=== PATIENT | female | born 1965 | race Caucasian/White ===

== ENCOUNTER 2020-08-06 12:21 | Inpatient (IN) | payer OTHER ==
[~2020-08-06] VITALS: Ht 170.2 cm; Wt 85.0 kg
[~2020-08-06 12:21] MED LIST: ALPR.5 PO; Antivert25 MG PO; CEPH500 PO; CITA20 PO; CYCL10 PO; HYDACE5 PO; IBUP800 PO; Naprosyn500 MG PO; Norco 5-325 Ta1 EACH PO; OXYACE5T PO; SULTRIDS PO; Ultram50 MG PO
[2020-08-06 12:44] LABS: BASOPHILS ABSOLUTE AUTO 0.02 K/mm3 (0.00-0.23); BASOPHILS PERCENT AUTO 0 % (0-2); EOSINOPHILS ABSOLUTE AUTO 0.01 K/mm3 (0.00-0.68); EOSINOPHILS PERCENT AUTO 0 % (0-6); Hematocrit 51.9 % (33.0-51.0); Hemoglobin 17.2 g/dL (11.5-16.0); IMMATURE GRAN ABSOLUTE AUTO 0.07 K/mm3 (0.00-0.10); IMMATURE GRAN PERCENT AUTO 1 % (0-1); LYMPHOCYTES ABSOLUTE AUTO 1.28 K/mm3 (0.84-5.20); LYMPHOCYTES PERCENT AUTO 9 % (21-46); MONOCYTES ABSOLUTE AUTO 1.08 K/mm3 (0.16-1.47); MONOCYTES PERCENT AUTO 8 % (4-13); Mean Corpuscular HGB 30.2 pg (26.0-34.0); Mean Corpuscular HGB Conc 33.1 g/dL (31.5-36.5); Mean Corpuscular Volume 91 fL (80-100); NEUTROPHILS ABSOLUTE AUTO 11.23 K/mm3 (1.96-9.15); NEUTROPHILS PERCENT AUTO 82 % (41-73); Platelet Count 184 K/mm3 (150-400); RDW Coefficient Variation 14.6 % (11.7-14.2); RDW Standard Deviation 48.1 fL (35.1-46.3); White Blood Cell Count 13.69 K/mm3 (4.00-11.30)
[2020-08-06 13:08] LABS: Base Excess Venous -0.5 mmol/L; Bicarbonate Venous 22.6 mmol/L (24.0-30.0); PCO2 Venous 44.4 mmHg (38-42); pH Blood Venous 7.36 (7.34-7.37)
[2020-08-06 13:09] LABS: Alanine Aminotransfer (ALT/SGP 34 U/L (12-78); Albumin, Blood 3.3 g/dL (3.4-5.0); Albumin/Globulin Ratio 0.6 (0.8-1.8); Alk Phos 121 U/L (50-136); Anion Gap 11 mmol/L (6-16); Aspartate Aminotrans (AST/SGOT 74 U/L (12-37); Bilirubin, Total 2.5 mg/dL (0.1-1.0); Blood Urea Nitrogen 15 mg/dL (8-24); Bun/Creatinine Ratio 18.3 (12.0-20.0); CO2, Blood 24 mmol/L (21-32); CPK Creatine Kinase 511 U/L (26-193); Calcium, Blood 9.1 mg/dL (8.5-10.1); Chloride, Blood 104 mmol/L (98-108); Creatine Kinase MB 26.7 ng/mL (0.0-3.6); Creatine Kinase MB Index 5.2 (0.0-4.0); Creatinine, Blood 0.82 mg/dL (0.40-1.00); Globulin, Blood 5.1 g/dL (2.2-4.0); Glomerular Filtration Rate >60 (60-); Glucose, Blood 125 mg/dL (70-99); Potassium, Blood 3.8 mmol/L (3.5-5.5); Sodium, Blood 139 mmol/L (136-145); Total Protein, Blood 8.4 g/dL (6.4-8.2)
[2020-08-06 13:19] LABS: Acetaminophen, Random <2.0 ug/mL (10.0-30.0); Salicylate <1.7 mg/dL (2.8-20.0)
[2020-08-06 13:29] LABS: Source, Urine Catheter
[2020-08-06 13:35] LABS: Appearance, Urine Clear (Clear); Bilirubin, Urine Neg (Neg); Blood, Urine 5+ (Neg); Color, Urine Yellow (P-Yellow); Glucose Qualitative, Urine Neg (Neg); Ketones, Urine 1+ (Neg); Leukocyte Esterase, Urine Neg (Neg); Nitrite, Urine Neg (Neg); Protein, Urine 4+ (Neg); Specific Gravity, Urine 1.015 (1.003-1.022); Urobilinogen, Urine NORM (Normal)
[2020-08-06 13:35] LABS: Calcium, Ionized (POC) 1.04 mmol/L (1.10-1.46); Chloride (POC) 102 mmol/L (98-108); Creatinine (POC) 0.8 mg/dL (0.6-1.0); Glucose (ISTAT POC) 136 mg/dL (70-99); Potassium (POC) 3.6 mmol/L (3.5-5.5); Sodium (POC) 139 mmol/L (135-148); Total CO2 (POC) 24 mmol/L (21-32)
[2020-08-06 13:46] LABS: Bacteria Few /hpf; Squamous Epithelial Cells Few /hpf (Few); White Blood Cells, Urine 0-2 /hpf (0-5)
[2020-08-06 13:52] LABS: U Cannabinoids Screen DETECTED
[2020-08-06 13:53] LABS: U Amphetamine Screen DETECTED; U Barbituate Screen Not Detected; U Benzodiazapine Screen Not Detected; U Buprenorphine Screen Not Detected; U Cocaine Screen Not Detected; U Methadone Screen Not Detected; U Methamphetamine Screen DETECTED; U Opiates Screen Not Detected; U Oxycodone Screen Not Detected; U Phencyclidine Screen Not Detected; U Propoxyphene Screen Not Detected
[2020-08-06 13:56] LABS: Influenza A, PCR NEGATIVE (NEGATIVE); Influenza B, PCR NEGATIVE (NEGATIVE); Resp Syncytial Virus, PCR NEGATIVE (NEGATIVE); SARS-Cov-2 (COVID-19) PCR, MMC NEGATIVE (NEGATIVE)
--- NOTE | 2020-08-06 15:00 | NUR ---
echocardiogram complete
--- NOTE | 2020-08-06 18:45 | NUR ---
SUMMARY Assumed care of pt upon arrival to ICU 8 from Emergency Department. Pt arrived with propofol at 20 mcg/kg/min. Unresponsive, which has been pt's LOC since presentation to ED. Sedation being given because pt received paralytics during RSI. Pt connected to ventilator at AC 14/400/5/40%. SpO2 90% or greater. Thick green sputum suctioned from ETT, sample sent. Lungs coarse t/o. Pt breathing over ventilator, RR 16-18 at rest and 22-30 when being stimulated. Pupils are pinpoint, with some additional constriction in response to light. With painful stimulus, pt does not move extremities or grimace. No gag noted. Cough present. No movement noted to BUE but pt remains in restraints as pt received RSI medications and may be at risk for self-extubation. Will continue to reassess continued need for restraints. Pt has gross movement to legs and was moving feet as if she was stepping on a pedal when this RN was assessing pedal and post tibial pulses with doppler. These pulses are faint per doppler. Radial pulses 1+ on palpation. Distal extremeties are purple and mottled. ER nurse, Petr, noted that this appearance was an improvement in appearance from when pt arrived to ER- at that time they were blue/dunn. Currently capillary refill is greater than 3 seconds. SR per monitor. Pt profoundly hypertensive and hypertension was not controlled with labetalol pushes. Dr Sharma ordered labetalol drip and instructed this RN to start drip at 2 mg/min. This RN stayed in room with patient for entire time labetalol drip was running, monitoring blood pressure every 5 minutes. Drip titration on flow sheet. Drip quickly titrated down to 0.5 mg/min and then turned off due to BP. Pt's BP continued to drop despite labetalol turned off and disconnected. 500 mL bolus of NS given per Dr Sharma. Pt's BP continued to drop for first 15-20 minutes of fluid bolus before BP started to improve. Unclear if BP improvement was from fluids or labetalol half-life. Dr Sharma notified of BP after bolus. Provider ordered levophed drip to achieve goal BP of 150-160 systolic. PICC line placed by hemodialysis charge nurseAlondra. Pt has large amount of red oral secretions suctioned. Per ER documentation, pt required several intubation attempts. Pt also having some brown drainage from OG tube. Liriano catheter draining yellow urine. Pt's son, Kemal, visited with patient for about 2 hours after arrival to unit. States his mother does not have any health history, does not take any prescribed medications, and does not routinely see a doctor. He states his mother is essentially homeless and often sleeps in her car. States she drinks daily. He does not quantify a specific amount but states "She always has a pint with her". He states she smokes tobacco, estimating half a pack per day. States she did not report any recreational drug use other than marijuana, "Marijuana helps her", however he has been suspicious of elicit drug use due to her behavior. 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 Report given to oncoming RN to assume care, Alexander.
--- NOTE | 2020-08-06 19:13 | NUR ---
ASSUMED PT CARE AT 1900 FROM [facility] PT INTUBATED AT THIS TIME. NOT ON ANY SEDATION. VENT AC 14, VT 400, PEEP 5, FIO2 30%; PT'S RESPIRATIONS ARE 22 AT THIS TIME. ALL FLUIDS AND IV MEDS ON STANDBY AT THIS TIME. PICC LINE BEING PLACED TO LEFT UPPER ARM AT TIME OF BEDSIDE REPORT; WAITING CONFIRMATION FROM CXR. ORDERS TO START LEVOPHED PER DR. BARRIGA TO KEEP SBP 150'S PER REPORT. SBP'S ARE 112 RIGHT NOW. NSR WITH HR 90'S. FEBRILE WITH 101.1 TEMP. DAS CATHETER PATENT AND DRAINING CLEAR YELLOW URINE. PT IS UNRESPONSIVE AT THIS TIME; GROSS MOTOR MOVEMENT NOTED TO EXTREMITIES. PERIHPERAL EXTREMITIES ARE CYANOTIC; HOWEVER, BILATERAL PEDIS PULSES ARE PALPABLE; CAP REFILL >3SEC.
--- NOTE | 2020-08-06 20:47 | NUR ---
UPDATE TO DR. BARRIGA CALL MADE D/T TEMP SLOWLY ELEVATING SINCE ASSUMPTION OF CARE; 100.3 TO 101.7. NEW ORDERS FOR BLOOD CULTURES X2, TYLENOL 650MG Q4 PRN TEMP >100.4. START UNASYN 3GM Q6 IV. UPDATED REGARDING NYSTAGMUS AND POSITIVE BABINSKI REFLEX; THEREFORE, REMOVED PT OUT OF RESTRAINTS. NEW ORDERS FOR LIVER ULTRASOUND FOR IN THE AM D/T CT SHOWING AIR IN LIVER, POSSIBLE PORTAL VENOUS GAS. FURTHER ORDERS TO KEEP LEVOPHED ON T/O THE NIGHT IN ORDER TO KEEP SYSTOLIC BP BETWEEN 140-160; WILL RE-EVALUATE IN THE MORNING.
--- NOTE | 2020-08-06 21:52 | NUR ---
UPDATE GIVEN TO DAUGHTER SPOKE WITH MADDI, WHO IS LISTED ON RELEASE OF INFORMATION. STATED SHE WOULD PREFER TO BE CALLED FIRST REGARDING ANY CHANGES BOTH HER BROTHER AND YOUNGER SISTER HAVE SURGICAL ONCOLOGIST JOBS. INFORMED HER THAT OLDER BROTHER WOULD NEED TO GIVE THAT CONSENT SINCE HE IS NEXT OF KIN. DAUGHTER STATES SHE HASN'T BEEN CLOSE TO HER MOTHER HER OTHER SIBLINGS; HOWEVER, THEY WERE NOT ESTRANGED. PT'S CHILDREN ARE THE ONLY ONES LISTED ON THE RELEASE OF INFORMATION. INFORMED MADDI THAT PT'S "ROOMMATE" CALLED ASKING "WHO HER DOCTORS WERE, WHO KNOCKED HER OUT, AND IF DR. BATISTA WAS ON HER CASE." INFORMED THIS CALLER THAT SHE WAS NOT ON THE RELEASE OF INFORMATION AND SHE WOULD NEED TO CONTACT PT'S KIDS TO BE PLACED ON THE LIST; CALLER HUNG UP QUICKLY. MADDI STATED NOBODY WILL BE PLACED ON THE RELEASE OF INFORMATION; JUST WHO IS ON THERE NOW. OBTAINED MADDI'S PHONE NUMBER AND PLACED ON CHART. NO FURTHER QUESTIONS.
--- NOTE | 2020-08-07 01:03 | NUR ---
PT'S FRIEND CALLED AGAIN EVELINE MCDOWELL CALLED TO "LET US KNOW" THAT SHE "CHOKED" ON STEAK THE OTHER NIGHT AND SHE KNOWS IT WAS "STUCK IN HER WINDPIPE". SHE ALSO WANTED TO LET US KNOW THAT SHE HAS A CYST ON HER OVARY. SHE ASKED HOW LONG SHE WAS GOING TO BE ON THE VENTILATOR. INFORMED HER WE COULD NOT GIVE HER ANY INFORMATION AT THIS TIME.
[2020-08-07 04:31] LABS: BASOPHILS ABSOLUTE AUTO 0.01 K/mm3 (0.00-0.23); BASOPHILS PERCENT AUTO 0 % (0-2); EOSINOPHILS PERCENT AUTO 0 % (0-6); Hematocrit 40.1 % (33.0-51.0); Hemoglobin 13.4 g/dL (11.5-16.0); IMMATURE GRAN ABSOLUTE AUTO 0.04 K/mm3 (0.00-0.10); IMMATURE GRAN PERCENT AUTO 0 % (0-1); LYMPHOCYTES PERCENT AUTO 13 % (21-46); MONOCYTES ABSOLUTE AUTO 1.14 K/mm3 (0.16-1.47); MONOCYTES PERCENT AUTO 12 % (4-13); Mean Corpuscular HGB Conc 33.4 g/dL (31.5-36.5); Mean Corpuscular Volume 90 fL (80-100); Mean Platelet Volume 11.2 fL (9.1-12.4); NEUTROPHILS ABSOLUTE AUTO 7.23 K/mm3 (1.96-9.15); NEUTROPHILS PERCENT AUTO 75 % (41-73); NRBC ABSOLUTE 0.03 K/mm3 (0.00-0.02); NRBC Auto 0.3 /100 WBC (0.0-0.2); Platelet Count 122 K/mm3 (150-400); RDW Coefficient Variation 14.7 % (11.7-14.2); RDW Standard Deviation 48.2 fL (35.1-46.3); Red Blood Cell Count 4.47 M/mm3 (3.80-5.20); White Blood Cell Count 9.62 K/mm3 (4.00-11.30)
--- NOTE | 2020-08-07 05:00 | NUR ---
END OF SHIFT SUMMARY PT REMAINS INTUBATED, BUT OFF SEDATION. VENT SETTINGS AC 14, VT 400, PEEP 5, FIO2 30%. PT HAS MAINLY BEEN BREATHING OVER THE VENT IN THE 20'S. COWORKER MEDICATED WITH 2MG OF ATIVAN D/T RESP 30-40'S AT ONE POINT. PT REMAINS UNRESPONSIVE. PUPILS PINPOINT AT THIS TIME. DIFFICULT TO ASSESS IF REACTIVE TO LIGHT. EARLIER IN SHIFT PT'S GAZE WAS NOTED TO BE NYSTAGMUS, WELL A POSITIVE BABINSKI REFLEX TO BILATERAL FEET. UPON REASSESSMENT THIS MORNING IT WAS NOTED THAT DURING STIMULATING COUGH PT HAD AN INWARD ROTATION OF ALL EXTREMITIES; MORE PROMINENT IN LEFT UPPER EXTREMITY. DAS CATHETER REMAINS PATENT AND DRAINING DARK [place] COLORED URINE TO GRAVITY. RESTRAINTS REMAIN OFF D/T NO PURPOSEFUL MOVEMENT. OG CLAMPED MOST OF THE SHIFT D/T PT TYLENOL ADMINISTERED FOR ELEVATED TMAX OF 102.7; WHICH IS NOW 100.4. OUTPUT IN OG REMAINS DARK BROWN WITH NOTED STREAKED BLOOD CLOTS; 50CC TOTAL; OG IS NOW HOOKED BACK TO LOW INTERMITTENT SUCTION. WILL CONTINUE TO MONITOR UNTIL REPORT IS HANDED OFF TO ONCOMING RN.
[2020-08-07 05:04] LABS: CPK Creatine Kinase 495 U/L (26-193); Magnesium, Blood 1.2 mg/dL (1.6-2.4)
[2020-08-07 05:52] LABS: Alanine Aminotransfer (ALT/SGP 21 U/L (12-78); Albumin, Blood 1.8 g/dL (3.4-5.0); Alk Phos 62 U/L (50-136); Anion Gap 10 mmol/L (6-16); Aspartate Aminotrans (AST/SGOT 62 U/L (12-37); Bilirubin, Indirect 1.2 mg/dL (0.1-0.7); Bilirubin, Total 2.2 mg/dL (0.1-1.0); Blood Urea Nitrogen 14 mg/dL (8-24); Bun/Creatinine Ratio 21.6 (12.0-20.0); CO2, Blood 18 mmol/L (21-32); Chloride, Blood 116 mmol/L (98-108); Creatinine, Blood 0.65 mg/dL (0.40-1.00); Glomerular Filtration Rate >60 (60-); Glucose, Blood 181 mg/dL (70-99); Potassium, Blood 2.7 mmol/L (3.5-5.5); Sodium, Blood 144 mmol/L (136-145)
[2020-08-07 06:21] LABS: Albumin/Globulin Ratio 0.6 (0.8-1.8); Globulin, Blood 2.8 g/dL (2.2-4.0)
[2020-08-07 06:22] LABS: Calcium, Blood 5.7 mg/dL (8.5-10.1); Total Protein, Blood 4.6 g/dL (6.4-8.2)
--- NOTE | 2020-08-07 06:28 | NUR ---
UPDATE TO DR. BARRIGA CALLED REGARDING LAB RESULTS FOR LACTIC, POTASSIUM, CALCIUM, AND MAGNESIUM. NEW ORDERS FOR REPLACEMENT OF ELECTROLYTES WITH REPEAT LAB DRAWS AT 1400. UPDATED REGARDING PT'S POSTURING STATUS AND LEVOPHED NEEDS. NO FURTHER ORDERS AT THIS TIME.
--- NOTE | 2020-08-07 07:15 | NUR ---
BEGINNING OF SHIFT Assumed care of pt at 0700. Bedside report received from Alexander [place]. Pt not sedated. Pt not in restraints. Pt responsive to painful stimulus. Decerebrate posturing with nail bed pressure. No gag. Cough present. Babinski reflex present. Disconjugate eye movement noted. Pupils equal, round, and reactive to light. Pt ventilated through 7.5 cm ETT, 23 cm at the teeth. Ventilator settings AC 14/400/5/30%. SpO2 90% or greater. Small amount of thick green sputum suctioned from ETT. OG tube to LIS with small amount of brown drainage. Liriano catheter draining dark yellow urine. Levophed on SB.
--- NOTE | 2020-08-07 08:21 | NUR ---
URINE CATHETER REINSERTION On repositioning, pt began peeing around welch catheter. This RN wiped the tubing to perform catheter care and catheter came out. Balloon was not inflated when it fell out. New temp welch inserted. Pt tolerated well.
[2020-08-07 08:31] LABS: Source, Urine Catheter
[2020-08-07 08:41] LABS: Appearance, Urine Clear (Clear); Blood, Urine 2+ (Neg); Color, Urine Amber (P-Yellow); Glucose Qualitative, Urine Neg (Neg); Ketones, Urine 1+ (Neg); Leukocyte Esterase, Urine 1+ (Neg); Nitrite, Urine Pos (Neg); Protein, Urine 3+ (Neg); Specific Gravity, Urine 1.025 (1.003-1.022); Urobilinogen, Urine 1+ (Normal)
[2020-08-07 09:00] LABS: Bilirubin, Urine 1+ (Neg)
[2020-08-07 09:01] LABS: Red Blood Cells, Urine 0-2 /hpf (0-2); Squamous Epithelial Cells Rare /hpf (Few)
[2020-08-07 09:02] LABS: Amorphous Light (0-Heavy); Bacteria Mod /hpf
--- NOTE | 2020-08-07 09:13 | NUR ---
DR FLORES IN TO SEE PATIENT Provider in to see patient. Discussed large amount of bloody secretions from oropharynx. In discussion with respiratory therapists that were with pt yesterday, intubation was not traumatic. Plan to hold aspirin suppository and lovenox injection at this time. Potential to start tube feeds today. Plan to obtain EEG. Continue to hold sedation.
--- NOTE | 2020-08-07 11:26 | NUR ---
INITIAL PAL CARE VISIT - YARIEL son, Kemal [phone] NEW REFERAL RECEIVED FROM ICU DRILL GRINDER - Case conferenced with bedside and discharge specialist as well as IDT during rounding prior to visit. Pt is currently ventilated and unresponsive with no sedation at this time. History of event & plan of care received and EMR fully reviewed. I assisted with repositioning in bed with no response noted from pt. She will randomly flex feet and ankles but no purposeful movement noted. Pt scheduled for EEG today. When more information known re: pt's condition and prognosis we will assist with family communication and advanced care planning. I did not note any nonverbal indicators of pain, restlessness or distress while resting or with us repositioning pt.
--- NOTE | 2020-08-07 11:44 | NUR ---
LEVOPHED RESARTED Dr Pulido notified that SBP is 115-125. Provider states to restart levophed to achieve SBP 150-160. Levophed restarted at 2 mcg/min.
[2020-08-07 14:42] LABS: Magnesium, Blood 2.8 mg/dL (1.6-2.4)
[2020-08-07 14:43] LABS: Anion Gap 8 mmol/L (6-16); Blood Urea Nitrogen 20 mg/dL (8-24); CO2, Blood 22 mmol/L (21-32); Chloride, Blood 109 mmol/L (98-108); Creatinine, Blood 0.87 mg/dL (0.40-1.00); Glomerular Filtration Rate >60 (60-); Glucose, Blood 127 mg/dL (70-99); Potassium, Blood 5.8 mmol/L (3.5-5.5); Sodium, Blood 139 mmol/L (136-145)
[2020-08-07 14:44] LABS: Calcium, Blood 9.1 mg/dL (8.5-10.1)
--- NOTE | 2020-08-07 15:06 | NUR ---
This RN stopped IV potassium when BMP resulted. Discussed elevated lab result with Dr Pulido. Plan to d/c remaining IV potassium and given one time dose of 40 mg lasix IV.
--- NOTE | 2020-08-07 18:09 | NUR ---
DR FLORES AWARE THAT LASIX WAS GIVEN LATE
--- NOTE | 2020-08-07 18:32 | NUR ---
SUMMARY No acute changes since initial assessment. No improvement to mentation. No changes to ventilator requirements. Pt's daughter, Keith, in to see patient today. Update given to Keith by this RN and Dr Pulido. Pt's other daughter, Bonny, has called unit twice and recevied approximately 45 minutes of education from this RN on patient's plan of care and disease process. Pt has EEG completed as well as abdominal CT. Pt's bowel tones are very hypoactive. Therefore, no tube feeds started today. Per Keith, patient takes "handfulls" of immodium. Will continue to closely monitor. Plan to restart propofol as pt is an every-day consumer of alcohol, and this will help with withdrawals per Dr Pulido. Pt to receive nicotine patch for alcohol withdrawal.
--- NOTE | 2020-08-07 20:19 | NUR ---
ASSUMED PT CARE AT 1900 FROM [facility] PT REMAINS INTUBATED. OFF SEDATION AT ASSUMPTION OF CARE. PT REMAINS UNRESPONSIVE WITH NYSTAGMUS NOTED; HOWEVER, PUPILS ROUND AND REACTIVE TO LIGHT POSITIVE BABINSKI REFLEX, INWARD ROTATION OF EXTREMITIES WITH ABNORMAL EXTENSION/POSTURING NOTED WHEN ENDOTRACHEAL SUCTION IS PERFORMED. PT HYPERTENSIVE WITH SBP 180-190'S, DIASTOLICS >100. LEVOPHED HAS BEEN ON STANDBY. PROPOFOL STARTED AT 15MCG/KG/MIN WITH SBP'S CURRENTLY 140-150'S. SINUS TACHYCARDIA NOTED WITH HR 100-110'S. OG IN PLACE AND HOOKED TO LOW INTERMITTENT SUCTION WITH NO OUTPUT NOTED. DURING ORAL CARES AND DEEP SUBGLOTTIC SUCTIONING; PT HAD COPIOUS AMOUNTS OF BLOOD NOTED IN SUCTION TUBING; BRIGHT RED IN COLOR. DAS CATHETER IS PATENT AND DRAINING LARGE AMOUNTS OF CLEAR, YELLOW URINE TO GRAVITY. RESTRAINTS REMAIN OFF.
[2020-08-08 04:11] LABS: BASOPHILS ABSOLUTE AUTO 0.04 K/mm3 (0.00-0.23); BASOPHILS PERCENT AUTO 0 % (0-2); EOSINOPHILS ABSOLUTE AUTO 0.02 K/mm3 (0.00-0.68); EOSINOPHILS PERCENT AUTO 0 % (0-6); Hematocrit 45.9 % (33.0-51.0); IMMATURE GRAN ABSOLUTE AUTO 0.07 K/mm3 (0.00-0.10); IMMATURE GRAN PERCENT AUTO 1 % (0-1); LYMPHOCYTES ABSOLUTE AUTO 1.61 K/mm3 (0.84-5.20); LYMPHOCYTES PERCENT AUTO 14 % (21-46); MONOCYTES ABSOLUTE AUTO 1.33 K/mm3 (0.16-1.47); MONOCYTES PERCENT AUTO 12 % (4-13); Mean Corpuscular HGB 29.8 pg (26.0-34.0); Mean Corpuscular HGB Conc 32.7 g/dL (31.5-36.5); Mean Corpuscular Volume 91 fL (80-100); Mean Platelet Volume 10.9 fL (9.1-12.4); NEUTROPHILS ABSOLUTE AUTO 8.21 K/mm3 (1.96-9.15); NEUTROPHILS PERCENT AUTO 73 % (41-73); NRBC ABSOLUTE 0.03 K/mm3 (0.00-0.02); NRBC Auto 0.3 /100 WBC (0.0-0.2); Platelet Count 145 K/mm3 (150-400); RDW Coefficient Variation 15.4 % (11.7-14.2); RDW Standard Deviation 49.8 fL (35.1-46.3); Red Blood Cell Count 5.03 M/mm3 (3.80-5.20); White Blood Cell Count 11.28 K/mm3 (4.00-11.30)
[2020-08-08 04:29] LABS: Alanine Aminotransfer (ALT/SGP 45 U/L (12-78); Albumin, Blood 2.5 g/dL (3.4-5.0); Albumin/Globulin Ratio 0.6 (0.8-1.8); Alk Phos 76 U/L (50-136); Anion Gap 6 mmol/L (6-16); Aspartate Aminotrans (AST/SGOT 103 U/L (12-37); Bilirubin, Total 2.7 mg/dL (0.1-1.0); Blood Urea Nitrogen 24 mg/dL (8-24); Bun/Creatinine Ratio 24.4 (12.0-20.0); CO2, Blood 27 mmol/L (21-32); Calcium, Blood 8.6 mg/dL (8.5-10.1); Chloride, Blood 109 mmol/L (98-108); Creatinine, Blood 0.99 mg/dL (0.40-1.00); Glomerular Filtration Rate >60 (60-); Glucose, Blood 109 mg/dL (70-99); Magnesium, Blood 2.1 mg/dL (1.6-2.4); Potassium, Blood 3.9 mmol/L (3.5-5.5); Sodium, Blood 142 mmol/L (136-145); Total Protein, Blood 6.5 g/dL (6.4-8.2)
--- NOTE | 2020-08-08 06:18 | NUR ---
END OF SHIFT SUMMARY NO SIGNIFICANT CHANGES OR EVENTS T/O SHIFT. REMAINS INTUBATED WITH UNCHANGED VENT SETTINGS: AC 14, VT 400, PEEP 5, FIO2 30%. RESP RATE HAS BEEN 15-20'S SINCE PROPOFOL STARTED, WHICH IS AT 30MCG/KG/MIN. VSS, SEE FLOWSHEET. PT CONTINUES TO POSTURE WHEN COUGH REFLEX STIMULATED; EYES CONTINUE TO HAVE NYSTAGMUS MOVEMENT NOTED; HOWEVER, PUPILS REMAIN REACTIVE TO LIGHT AND EQUAL BILATERALLY. WILL CONTINUE TO MONITOR UNTIL REPORT IS HANDED OFF TO ONCOMING RN.
--- NOTE | 2020-08-08 08:19 | NUR ---
CARE OF PT ASSUMED AT 0700. BEDSIDE REPORT TAKEN. [facility]; AC 14/400/30%/5. PROPOFOL AT 10MCG PT HAD BEEN POSTURING. PT'S PUPILS ARE EQUAL AND REACTIVE 3/3MM, SOMEWHAT SLUGGISH. PT HAS + DOLLS EYES; THIS IS SLUGGISH WELL. NYSTAGMUS IS NOT NOTED AT THIS TIME; NYSTAGMUS WAS NOTED ON PREVIOUS SHIFT. PT HAS SWALLOW, NO COUGH, NO GAG. THERE IS THICK DARK ABDI ETT SECRETIONS. LUNGS ARE RELATIVELY CLEAR. BLOODY SECRETIONS SX'D FROM MOUTH. PT HAS SPONTANEOUS FLEXING OF FEET WITH +BABINSKI. NO OTHER SPONT MOVEMENT NOTED. PT DOES NOT RESPOND TO NAIL BED OR STERNAL RUB PAIN. BOWEL TONES ARE ABSENT. SM AMT OF BILE TO OGT; OGT TO LIS. PT IS EDEMATOUS T/O.
--- NOTE | 2020-08-08 09:38 | NUR ---
DR FLORES IN TO SEE PT; FULL UPDATE GIVEN. PT TO HAVE HEAD CT THIS AM. PROPOFOL TO BE STOPPED AFTER CT SCAN. TRICKLE FEEDS TO BE STARTED. ASA TO BE HELD; OKAY TO GIVE LOVENOX.
--- NOTE | 2020-08-08 10:29 | NUR ---
PT TO CT AND BACK FOR CT OF HEAD. PROPOFOL STOPPED PER DR FLORES. DR CASON IN TO SEE PT; FULL UPDATE GIVEN.
--- NOTE | 2020-08-08 10:33 | NUR ---
COUGH NOTED. PT HAS CORNEAL REFLEX.
--- NOTE | 2020-08-08 12:22 | NUR ---
PT NOW RESPONDS TO PAIN. ARMS AND LEGS MOVE/WITHDRAWAL TO PAIN. PT GRIMACES W ORAL CARE AND TURNS HEAD OCCASSIONALLY. PT HYPERTENSIVE W DBP >110. DR FLORES NOTIFIED. LABETALOL 10MG IVP. BP NOW 121/79, HR 81
--- NOTE | 2020-08-08 13:23 | NUR ---
PT'S EYES IN HARD DOWNWARD GAZE TO THE LEFT. DR FLORES AT BEDSIDE. PROPOFOL GTT RESTRATED PER DR FLORES. PROPOFOL AT 30MC FOR POSSIBLE SEIZURE ACTIVITY.
--- NOTE | 2020-08-08 16:31 | NUR ---
DR FLORES IN TO SEE PT AND UPDATED PT'S DAUGHTER MADDI. EEG SHOWS NO SEIZURE ACTIVITY; PROPOFOL STOPPED PER DR FLORES. SPUTUM CX GIVEN TO DR FLORES; NEW ORDERS FOR ABX.
[2020-08-08 18:32] LABS: Automated CSF WBC Count 0.002 K/mm3 (0-5); WBC Count, CSF 2 /mm3 (0-5)
[2020-08-08 18:57] LABS: Appearance, CSF Clear (Clear)
[2020-08-08 18:59] LABS: RBC Count, CSF 9 /mm3 (0-0)
[2020-08-08 19:18] LABS: Lymphocytes, CSF 33 % (40-80); Monocytes, CSF 33 % (15-45); Neutrophils, CSF 33 % (0-6)
--- NOTE | 2020-08-08 19:24 | NUR ---
SPUTUM RESULTS SHOW NEISSERIA MENINGITIDIS. LP PERFORMED BY DR FLORES BECAUSE OF THE RESULTS. PT TOLERATED PROCEDURE WELL, PT DID MOVE LEGS TO PAINFUL STIMULI. FENT 50MCG GIVEN PER DR FLORES FOR PROCEDURE. LP FLUID CLEAR, PRESSURE 26. PROPOFOL TO REMAIN OFF. HTN TO BE TREATED W LABETALOL NEEDED. NO ADDITIONAL NEURO CHANGES FROM LAST ASSESSMENT.
[2020-08-08 19:54] LABS: Cryptococcus Neoformans/Gattii Not Detected (NOT DETECT); Enterovirus Not Detected (NOT DETECT); Escherichia Coli K1 Not Detected (NOT DETECT); Haemophilus Influenza Not Detected (NOT DETECT); Herpes Simplex Virus 1 Not Detected (NOT DETECT); Herpes Simplex Virus 2 Not Detected (NOT DETECT); Human Herpesvirus 6 Not Detected (NOT DETECT); Human Parechovirus Not Detected (NOT DETECT); Listeria Monocytogenes Not Detected (NOT DETECT); Neisseria Meningitidis Not Detected (NOT DETECT); Streptococcus Agalactiae Not Detected (NOT DETECT); Streptococcus Pneumoniae Not Detected (NOT DETECT); Varicella Zoster Virus Not Detected (NOT DETECT)
--- NOTE | 2020-08-08 23:00 | NUR ---
ASSUMED PT CARE AT 1900 FROM [facility] PT REMAINS MECHANICALLY VENTILATED WITH VENT SETTINGS: AC 14, VT 400, PEEP 5, FIO2 30%. PT BREATHING WITH THE VENT AT 14, BUT DOES BECOME TACHYPNEIC WITH RESP RATE >20 AT TIMES. PT REMAINS UNRESPONSIVE WITH SEDATION OFF. EYES HARD DOWNWARD GAZE AND TO THE LEFT WITH OCCASIONAL NYSTAGMUS NOTED; PUPILS REMAIN SMALL, BUT REACTIVE TO LIGHT. POSITIVE BABINSKI REFLEX. PT GRIMACES WITH ORAL CARES; HOWEVER, NO PURPOSEFUL MOVEMENT NOTED; THEREFORE, RESTRAINTS REMAIN OFF AT THIS TIME. PT HAS BEEN HYPERTENSIVE WITH SBP 170-180'S; MEDICATED WITH LABETOLOL X1 D/T SBP 190; PT IS NOW 150'S SYSTOLIC. LR INFUSING AT 150MLS/HR X1 LITER BAG. PIVOT 1.5 AT GOAL OF 20MLS/HR; 0 RESIDUALS NOTED; HYPOACTIVE BT. DAS CATHETER REMAINS PATENT AND DRAINING YELLOW WITH PINK TINGED URINE THAT IS CLOUDY TO GRAVITY. NO FURTHER CHANGES.
[2020-08-09 04:59] LABS: BASOPHILS ABSOLUTE AUTO 0.02 K/mm3 (0.00-0.23); BASOPHILS PERCENT AUTO 0 % (0-2); EOSINOPHILS ABSOLUTE AUTO 0.05 K/mm3 (0.00-0.68); EOSINOPHILS PERCENT AUTO 1 % (0-6); Hematocrit 49.8 % (33.0-51.0); Hemoglobin 16.1 g/dL (11.5-16.0); IMMATURE GRAN ABSOLUTE AUTO 0.04 K/mm3 (0.00-0.10); IMMATURE GRAN PERCENT AUTO 0 % (0-1); LYMPHOCYTES ABSOLUTE AUTO 1.39 K/mm3 (0.84-5.20); LYMPHOCYTES PERCENT AUTO 15 % (21-46); MONOCYTES ABSOLUTE AUTO 1.16 K/mm3 (0.16-1.47); MONOCYTES PERCENT AUTO 12 % (4-13); Mean Corpuscular HGB 29.9 pg (26.0-34.0); Mean Corpuscular HGB Conc 32.3 g/dL (31.5-36.5); Mean Corpuscular Volume 92 fL (80-100); Mean Platelet Volume 10.9 fL (9.1-12.4); NEUTROPHILS ABSOLUTE AUTO 6.94 K/mm3 (1.96-9.15); NEUTROPHILS PERCENT AUTO 72 % (41-73); NRBC ABSOLUTE 0.06 K/mm3 (0.00-0.02); NRBC Auto 0.6 /100 WBC (0.0-0.2); Platelet Count 162 K/mm3 (150-400); RDW Coefficient Variation 15.6 % (11.7-14.2); Red Blood Cell Count 5.39 M/mm3 (3.80-5.20)
[2020-08-09 05:30] LABS: Alanine Aminotransfer (ALT/SGP 47 U/L (12-78); Albumin, Blood 2.6 g/dL (3.4-5.0); Albumin/Globulin Ratio 0.6 (0.8-1.8); Alk Phos 77 U/L (50-136); Anion Gap 6 mmol/L (6-16); Aspartate Aminotrans (AST/SGOT 97 U/L (12-37); Bilirubin, Total 2.6 mg/dL (0.1-1.0); Blood Urea Nitrogen 28 mg/dL (8-24); Bun/Creatinine Ratio 32.3 (12.0-20.0); CO2, Blood 26 mmol/L (21-32); Calcium, Blood 8.5 mg/dL (8.5-10.1); Chloride, Blood 109 mmol/L (98-108); Creatinine, Blood 0.87 mg/dL (0.40-1.00); Globulin, Blood 4.4 g/dL (2.2-4.0); Glomerular Filtration Rate >60 (60-); Glucose, Blood 136 mg/dL (70-99); Phosphorus, Blood 2.9 mg/dL (2.5-4.9); Potassium, Blood 4.5 mmol/L (3.5-5.5); Sodium, Blood 141 mmol/L (136-145)
--- NOTE | 2020-08-09 05:40 | NUR ---
END OF SHIFT SUMMARY NO SIGNIFICANT CHANGES OR EVENTS T/O NIGHT. PT REQUIRED TWO 20MG DOSES OF LABETOLOL D/T SBP >185; EFFECTIVE WITH SBP 150'S. NO NEURO CHANGES, NO VENT CHANGES. PT REMAINS SALINE LOCKED AT THIS TIME. PIVOT 1.5 CONTINUES AT TRICKLE FEED OF 20ML/HR; MINIMAL RESIDUALS; HYPOACTIVE BT. DAS CATHETER REMAINS DRAINING CLOUDY YELLOW URINE WITH PINK STREAKS NOTED. PT AFEBRILE FOR MOST OF SHIFT; HOWEVER, SLOWLY CLIMBING BACK UP; THEREFORE, FAN PLACED BACK ON PT. DAUGHTERMADDI, CALLED FOR AN UPDATE; HOWEVER, UPON RETURN CALL ONLY VOICE MAILBOX WAS REACHED; NO MESSAGE LEFT. WILL CONTINUE TO MONITOR UNTIL REPORT IS HANDED OFF TO ONCOMING RN.
--- NOTE | 2020-08-09 08:50 | NUR ---
CARE ASSUMED THIS AM AT 0700. [facility]. PT IS UNRESPONSIVE. DECEREBRATE POSTURING NOTED WITH NOXIOUS OR PAINFUL STIMULI. PUPILS ARE EQUAL AND REACTIVE BUT SLUGGISH 3/3MM. PT HAS SIGNIFICANT NYSTAGMUS WITH INDEPENDENT MOVEMENT OF EACH EYE IN DIFFERENT DIRECTIONS. PT'S EYES CHANGE TO A HARD DAWNWARD GAZE TO R AND L. NEGATIVE DOLLS EYES. + BABINSKI, PT HAS COUGH AND SWALLOW, NO GAG. PT BREATHING OVER VENT. MODERATE AMT OF DARK ABDI SECRETIONS FROM ETT. ORAL SECRETIONS THICK AND DARK BUT NO LONGER BLOODY. PT TOLERATING TUBE FEEDINGS; NO RESIDUALS. VERY MINIMAL BOWEL TONES TO ABSENT BT'S. PT W LOW GRADE TEMP 100.1. BLANKETS REMOVED. FAN ON PT. PT VERY HYPERTENSIVE W MAPS >110. DR FLORES CALLED AND UPDATED. NICARDIPINE GTT STARTED AT 2.5MG/HR. DBP NOW 99.
--- NOTE | 2020-08-09 09:47 | NUR ---
DR FLORES AT BEDSIDE. R PUPIL IS NOW 3MM, L PUPIL IS 4MM. PUPILS ARE REACTIVE. EYES ARE NOW MOVING TOGETHER W NYSTAGMUS. DECEREBRATE POSTURING IS NOTED. PT'S DAUGHTER MADDI WAS GIVEN UPDATE THIS AM.
--- NOTE | 2020-08-09 10:09 | NUR ---
BP 103/69. NICARDIPINE PLACED ON SB
--- NOTE | 2020-08-09 12:47 | NUR ---
NICARDIPINE RESTARTED AT 1.5MG/HR. BP HAS BEEN STABLE AT THIS RATE, BUT DOES INCREASE W ANY NOXIOUS STIMULI. PUPILS NOW 3/3MM EQUAL AND REACTIVE. NYSTAGMUS NOTED. EYES TO MOVE TO DOWNWARD GAZE WHEN LIGHT SHINED. SOME DECEREBRATE POSTURING NOTED W NOXIOUS STIMULI.
--- NOTE | 2020-08-09 16:18 | NUR ---
PT'S SON HARMAN IN TO SEE PT. UPDATE GIVEN. NO OTHER CHANGES WITH PT.
--- NOTE | 2020-08-09 18:43 | NUR ---
NO NEW NEURO CHANGES. PT CONTINUES TO POSTURE W NOXIOUS STIMULI. NICARDIPINE HAS REMAINED AT 1.5MG/HR, SBP BETWEEN 135-160, DBP HAS BEEN STABLE. BP RAISES SIGNIFICANTLY WITH ANY NOXIOUS STIMULI. COPIOUS AMTS OF VERY THICK DARK ABDI SECRETIONS SX'D FROM ETT T/O SHIFT. PT HAS NOT RECEIVED ANY SEDATION THIS SHIFT.
--- NOTE | 2020-08-09 18:59 | NUR ---
FIO2 INCREASED TO 40% FOR SATS 87-89% DESPITE SUCTIONING.
--- NOTE | 2020-08-09 19:55 | NUR ---
SHIFT ASSESSMENT ASSUMED CARE OF PT @ 1900, REPORT RECV'D FROM [facility]. PT INTUBATED WITHOUT SEDATION, VENT SETTINGS: AC- 14/400/5/40% c O2 SATS >90%. PT IS UNRESPONSIVE. NO PURPOSEFUL MOVMENT, RESTRAINTS REMAIN OFF. PUPILS EQUAL WITH SLOW NYSTAGMUS, NEGATIVE DOLLS EYES. DECEREBRATE POSTURING IN RESPONSE TO NOXIOUS STIMULI. +BABINSKI SIGN. PT WITH OCCASIONAL PRODUCTIVE COUGH, THICK ABDI SPUTUM WITH SUCTION. TF @ GOAL RATE, NO RESIDUALS. BOWEL TONES HYPOACTIVE. DAS CATH PATENT. NICARDIPINE GTT @ 1.5MG c GOAL SBP 150-170. WILL CONTINUE TO MONITOR. WILL CONTINUE TO MONITOR.
[2020-08-10 03:58] LABS: BASOPHILS ABSOLUTE AUTO 0.04 K/mm3 (0.00-0.23); BASOPHILS PERCENT AUTO 0 % (0-2); EOSINOPHILS ABSOLUTE AUTO 0.13 K/mm3 (0.00-0.68); EOSINOPHILS PERCENT AUTO 1 % (0-6); Hematocrit 49.1 % (33.0-51.0); Hemoglobin 16.2 g/dL (11.5-16.0); IMMATURE GRAN ABSOLUTE AUTO 0.06 K/mm3 (0.00-0.10); IMMATURE GRAN PERCENT AUTO 1 % (0-1); LYMPHOCYTES PERCENT AUTO 16 % (21-46); MONOCYTES PERCENT AUTO 13 % (4-13); Mean Corpuscular HGB 30.6 pg (26.0-34.0); Mean Corpuscular Volume 93 fL (80-100); Mean Platelet Volume 10.9 fL (9.1-12.4); NEUTROPHILS ABSOLUTE AUTO 6.93 K/mm3 (1.96-9.15); NEUTROPHILS PERCENT AUTO 69 % (41-73); NRBC ABSOLUTE 0.04 K/mm3 (0.00-0.02); NRBC Auto 0.4 /100 WBC (0.0-0.2); Platelet Count 157 K/mm3 (150-400); RDW Coefficient Variation 15.7 % (11.7-14.2); White Blood Cell Count 10.06 K/mm3 (4.00-11.30)
[2020-08-10 04:14] LABS: Anion Gap 5 mmol/L (6-16); Blood Urea Nitrogen 20 mg/dL (8-24); Bun/Creatinine Ratio 30.4 (12.0-20.0); CO2, Blood 28 mmol/L (21-32); Calcium, Blood 7.8 mg/dL (8.5-10.1); Chloride, Blood 107 mmol/L (98-108); Creatinine, Blood 0.66 mg/dL (0.40-1.00); Glomerular Filtration Rate >60 (60-); Glucose, Blood 117 mg/dL (70-99); Phosphorus, Blood 2.1 mg/dL (2.5-4.9); Potassium, Blood 3.7 mmol/L (3.5-5.5); Sodium, Blood 140 mmol/L (136-145)
--- NOTE | 2020-08-10 06:20 | NUR ---
SHIFT SUMMARY NO NEW NEURO CHANGES FROM INITIAL ASSESSMENT. NICARDIPINE GTT ON SB, BP STABLE AT THIS TIME. CONTINUE TO SUCTION LARGE AMOUNTS OF THICK SPUTUM FROM ET TUBE. VENT SETTINGS REMAIN THE SAME OTHER THAN FIO2 HAS BEEN TITRATED BACK DOWN TO 30%. WILL CONTINUE TO MONITOR, REPORT TO ONCOMING NURSE.
--- NOTE | 2020-08-10 08:15 | NUR ---
ASSESSMENT- PT COMATOSE, NO RESPONSE TO VERBAL STIMULUS. DECEREBRATE POSTURING TO PAINFUL STIMULUS. ORALLY INTUBATED, TUBE SECURE, TOLERATING VENT SETTINGS. TACHYPNEIC AT TIMES, RATE 22-30 BPM. HYPERTENSIVE, CARDENE GTT RESTARTED PER PARAMETERS. PUPILS EQUAL, GAZE TO RIGHT. LEFT ARM PICC INTACT WITH NS TKO, K PHOS REPLACEMENT INFUSING. TUBE FEEDING VIA OGT AT GOAL, RESIDUAL 10 CC REPLACED. UO VIA DAS. REPOSITIONED. DROPLET AND CONTACT PRECAUTIONS.
--- NOTE | 2020-08-10 10:38 | NUR ---
REPOSITIONED, VS=BP LOW FOR PARAMETERS-DECREASED NICARDIPINE.
--- NOTE | 2020-08-10 12:15 | NUR ---
PT'S DAUGHTER CALLED-UPDATED AND TALKED WITH DR. BELTRAN. PLANS FOR FAMILY TO COME TODAY AT 1600. EDMAR OFF-D/C. USE LABETOLOL IF NEEDED FOR SBP > 185.
--- NOTE | 2020-08-10 14:45 | NUR ---
VSS. CONTINUE TO MONITOR. REPORT TO PNTB. DISCUSSED PLAN WITH PT'S DAUGHTERS-WILL BE HERE TODAY.
--- NOTE | 2020-08-10 17:00 | NUR ---
NEURO ASSESSMENT UNCHANGED. CONTINUE TO MONITOR
--- NOTE | 2020-08-10 18:52 | NUR ---
FAMILY DID NOT COME TO VISIT TODAY. HAD UPDATED MULTIPLE TIMES ON PHONE. TOLERATING VENT, COPIOUS THICK ORAL SECRETIONS. BP ELEVATED, IMPROVED WITH REPOSITIONING. TOLERATING TUBE FEEDING. POOR DENTITION-THREE UPPER TEETH INTACT BUT LOOSE. CONTINUE TO MONITOR
--- NOTE | 2020-08-10 20:05 | NUR ---
SHIFT ASSESSMENT ASSUMED CARE OF PT @ 1900, REP0RT RECV'D FROM [facility]. PT INTUBATED, NO SEDATION, RESTRAINTS REMAIN OFF. VENT SETTINGS: AC-14/400/5/30% c O2 SATS >90%. NO PURPOSEFUL MOVEMENT FROM PT. DURING PUPILLARY EXAM, PT WOULD BLINK SLOWLY IN RESPONSE TO LIGHT. PUPILS EQUAL AND SLOW TO RESPOND, SLOW NYSTAGMUS BILATERALLY. DECERABRATE POSTURING, +BABINSKI REFLEX. TF @ GOAL c RESIDUALS <20CC. BT HYPOACTIVE. DAS CATH PATENT, DRAINING TO GRAVITY. WILL CONTINUE TO MONITOR.
--- NOTE | 2020-08-11 08:14 | NUR ---
ASSESSMENT- PT COMATOSE, UNRESPONSIVE TO VERBAL STIMULUS. DOES RESPOND TO PAINFUL STIMULUS WITH DECEREBRATE POSTURING TO UPPER ARMS, WITHDRAWAL LEGS. POSITIVE BABINSKI. PUPILS EQUAL, WANDERING GAZE. ORALLY INTUBATED, TUBE SECURE. LUNGS CLEAR, DIMINISHED BASES. MODERATE AMOUNT ABDI SECRETIONS SUCTIONED. ORAL CARE-POOR DENTITION. THREE UPPER TEETH VERY LOOSE, INTACT. MOUTH SMALL AMOUNT BLOODY SECRETIONS. APICAL REGUALR, NSR. BP LOW AFTER ATIVAN, THEN IMPROVED AFTER REPOSITIONING. ABDOMEN LARGE, SOFT. TUBE FEEDING VIA OGT, RESIDUAL 60 CC REPLACED. UO VIA DAS. SHAGYG PICC DI, NS TKO
--- NOTE | 2020-08-11 14:09 | NUR ---
PT'S DAUGHTER MADDI CALLED-UPDATED. PLAN FOR CARE CONFERENCE TODAY. QUESTIONS ANSWERED. VS UNCHANGED. DR. BELTRAN TO CALL AND DISCUSS WITH DAUGHTER ANTHONY PER REQUEST. PT'S SON CALLED-PLAN FOR CONFERENCE AT 1630
--- NOTE | 2020-08-11 16:02 | NUR ---
ISOLATION PRECAUTIONS- D/C PER INFECTION CONTROL. HAS BEEN ON ROCEPHIN
--- NOTE | 2020-08-11 16:03 | NUR ---
VS UNCHANGED. REPOSITIONED, COPIOUS ORAL SECRETIONS. SINUS RHYTHM.
--- NOTE | 2020-08-11 18:59 | NUR ---
PT'S FAMILY HERE-TWO DAUGHTERS AND SON. DR. BELTRAN TALKED WITH FAMILY, ANSWERED MULTIPLE QUESTIONS. CHANGE TO DNR STATUS. FAMILY HAVING PRIVATE TIME IN ROOM NOW. VSS.
--- NOTE | 2020-08-11 19:30 | NUR ---
ASSUMED CARE OF PT, BEDSIDE REPORT RECEIVED. FAMILY IS NO LONGER AT BEDSIDE AT THIS TIME. PT IS WITHOUT SEDATION, CONTINUES WITHOUT PURPOSEFUL MOVEMENT, ABNORMAL EXTENSION IS NOTED TO UPPER EXTERMITIES WITH NOXIOUS STIMULI. VENT SETTINGS AC 14, TV 400, PEEP 5, FIO2 30% ETT 7.5, 23 CM AT TEETH, SATS MAINTAINING, RATE GREATER THAN 14 AT THIS TIME. WILL CONT SUPPORTIVE CARE THROUGHOUT THIS SHIFT, FAMILY PLAN PER OFFGOING RN IS COMFORT CARE TOMORROW, PT WAS CHANGED TO DNR STATUS TONIGHT.
--- NOTE | 2020-08-12 01:55 | NUR ---
INCREASED RESPIRATORY RATE TO NEAR 40/MIN NOTED, PT CONTINUES WITHOUT PURPOSEFUL MOVEMENT AT THIS TIME, ABNORMAL EXTENSION OF BILAT UPPER EXTREMITIES IS NOTED WITHOUT EXTERNAL NOXIOUS STIMULI, ATIVAN 2 MG IV ADMINISTERED WILL MONITOR.
--- NOTE | 2020-08-12 06:08 | NUR ---
PT REMAINS INTUBATED WITHOUT SEDATION THROUGHOUT NOC, RESP RATE WAS NOTED TO INCREASE TO NEAR 40 X 1 AND ATIVAN 2 MG IV WAS ADMINISTERED WITH IMPROVED RESP RATE TO LOW 20S. SHE CONTINUES TO DISPLAY ABNORMAL EXTENSION TO BILAT UPPER EXTREMITIES WITH ANY NOXIOUS STIMULI, SHE DID OPEN HER EYES X 1 DURING BEDBATH HOWEVER DOES NOT TRACK, DOES NOT MAKE EYE CONTACT, RIGHT GAZE IS NOTED, PUPILS CONTINUE TO REACT BRISKLY, DORSIFLEXION IS NOTED WITH NOXIOUS STIMULI TO LOWER EXTREMITIES, PT HAS BEEN NOTED TO HAVE INTERMITTENT SMALL MOVEMENTS OF LEGS HOWEVER NOTHING PURPOSEFUL HAS BEEN NOTED THROUGHOUT SHIFT. VENT SETTINGS REMAIN UNCHANGED, LUNGS CONTINUE CLEAR WITH DIM BASES BILAT, ETT SUCTION IS PRODUCTIVE OF THICK ABDI SPUTUM AT TIMES, PT RESP RATE IS MAINTAINED BETWEEN 20 AND 30/MIN THROUGHOUT NOC. TUBE FEEDS CONTINUE, RATE INCREASED TO GOAL OF 40 ML/HR AT 0330 THIS AM, RESIDUALS THROUGHOUT NOC HAVE BEEN 88, 52, AND 70 ML, ABD REMAINS SOFT WITH ACTIVE BOWEL TONES. DAS REMAINS IN PLACE WITH GOOD URINE OUTPUT SEE I&O RECORD.
--- NOTE | 2020-08-12 08:30 | NUR ---
ASSESSMENT- PT COMATOSE, NO RESPONSE TO VERBAL STIMULUS. PERRL, GAZE TO RIGHT. POSTURING UPPER ARMS IN RESPONSE TO PAINFUL STIMULUS, BABINSKI BOTH FEET. ORALLY INTUBATED, TUBE SECURE. TOLERATING VENT SETTINGS. MODERATE AMOUNT ETT SECRETIONS, THICK ABDI. LUNGS CLEAR,DIMINISHED BASES. SINUS RHYTHM. BP STABLE. ANASARCA. ABDOMEN ROUND, SOFT. TUBE FEEDING VIA OGT INTACT. UO VIA DAS. REPOSITIONED. NS TKO, LEFT UPPER ARM PICC INTACT.DR GASPAR HERE-UPDATED.
--- NOTE | 2020-08-12 11:31 | NUR ---
AM CARE DONE. ASSESSMENT UNCHANGED. CONTINUE TO MONITOR. TUBE FEEDS AT GOAL 40 CC/HR
--- NOTE | 2020-08-12 12:12 | NUR ---
BP ELEVATED-RX WITH LABETOLOL [address] BELTRAN HERE-ASSESSED PT
--- NOTE | 2020-08-12 14:37 | NUR ---
BP IMPROVED. VSS.
--- NOTE | 2020-08-12 15:44 | NUR ---
VS STABLE, NSR. TEMP 99.5 REPOSITIONED. REPORT TO BAHMAN AL
--- NOTE | 2020-08-12 17:30 | NUR ---
Assumed care from Mony AL. Patient intubated and not sedated with minimal movement. She blinks eyes when pulling lids to check pupils she looks to right and eye slowly track back to left. Corticate posture to upper extremities. She is intubated with 7.5 ET and 23 at lips with vent settings of AC 14, TV 400, FiO2 30% , and PEEP 5.0 and sats >95%. Liriano in place draing to gravity orange urine and had 600 mls out, She has PICC line to SHAGGY dressing intact and site WNL's and is infusing NS TKO. Daughter by and at bedside. She has OG infusing Pivot 1.5 at 40ml/hr and 30 ml water flushes Q4. Gave labatelol for systolic 190's and brought down to 148. Daughter stated they would not be in until tomorrow for comfort care.
[2020-08-12 18:41] LABS: Anion Gap 5 mmol/L (6-16); Blood Urea Nitrogen 20 mg/dL (8-24); Bun/Creatinine Ratio 34.5 (12.0-20.0); CO2, Blood 29 mmol/L (21-32); Calcium, Blood 7.8 mg/dL (8.5-10.1); Chloride, Blood 107 mmol/L (98-108); Creatinine, Blood 0.58 mg/dL (0.40-1.00); Glomerular Filtration Rate >60 (60-); Glucose, Blood 136 mg/dL (70-99); Magnesium, Blood 2.1 mg/dL (1.6-2.4); Phosphorus, Blood 1.9 mg/dL (2.5-4.9); Potassium, Blood 3.5 mmol/L (3.5-5.5); Sodium, Blood 141 mmol/L (136-145)
--- NOTE | 2020-08-12 19:00 | NUR ---
ASSUMED CARE ASSUMED CARE OF PATIENT. REMAINS INTUBATED- AC 14, TV 400, PEEP 5, FIO2 30%. RR 20s. ETT 7.5, 23 AT TEETH. DECEREBRATE POSTURING NOTED WITH STIMULATION. POSITIVE BABINSKI. POSITIVE CORNEAL REFLEX NOTED. BLINKS EYES WHEN OPENED. EYES CONTINUE TO MOVE TO THE RIGHT AND THEN SLOWLY BACK TO THE LEFT. MONITOR SHOWS NSR, RATE 70s. HYPERTENSIVE. TEMP 99.9F VIA DAS TEMP PROBE. OG WITH PIVOT 1.5 AT GOAL RATE OF 40CC/HR. 30CC H20 FLUSH Q4H. OG RESIDUAL <10CC. DAS PATENT AND DRAINING NATIVIDAD URINE. SHAGGY PICC NOTED.
--- NOTE | 2020-08-12 19:20 | NUR ---
FAMILY FAMILY IS AT BEDSIDE AND IS DISCUSSING OPTIONS REGARDING COMFORT CARE. SEVERAL CONVERSATIONS HAVE BEEN HAD WITH DR. BELTRAN AND SON STATES THAT THEY ARE READY TO GO TO COMFORT CARE.
--- NOTE | 2020-08-12 23:03 | NUR ---
COMFORT CARE PT EXTUBATED AND CHANGED TO COMFORT CARE AT THIS TIME. SON IS AT BEDSIDE. PT WITH SPONTANEOUS RESPIRATIONS AFTER EXTUBATION. NO PURPOSEFUL RESPONSE TO NOXIOUS STIMULI. TUBE FEEDING STOPPED AT THIS TIME. ALL TREATMENTS EXCEPT COMFORT CARE ORDERS DISCONTINUED AT THIS TIME. WILL CONTINUE TO MONITOR.
--- NOTE | 2020-08-13 06:26 | NUR ---
SHIFT SUMMARY SON AT BEDSIDE T/O NOC. EXTUBATED AND CHANGED TO COMFORT CARE AT 2303. MEDICATED WITH MS 5MG IV X2 DOSES DURING NOC FOR MILD DYSPNEA. WILL REPORT TO ONCOMING RN WHEN AVAILABLE.
--- NOTE | 2020-08-13 09:45 | NUR ---
Comfort care visit: Rosa's son is at her bedside, he has been at her side all night. Encouraged self care. Nursing reports Rosa is requiring suctioning to manage her secretions. Small amount of mottling noted to bilat hands. Skin to feet and legs is warm to touch. Resp are not labored at the time of the this visit. Liriano draining light marissa urine. Spoke with Dr. Delgado and received verbal orders for comfort care medications, orders placed.
--- NOTE | 2020-08-13 14:33 | NUR ---
Stopped to check in on Rosa to see how the new comfort care medications are working for her. Her son just stepped out prior to my arrival. Rosa appears comfortable at this time. She has received medications to help with secretions as well as roxinol. Weak cough noted. PC will remain available.
--- NOTE | 2020-08-13 17:56 | NUR ---
SHIFT SUMMARY; PT REMAINS ON COMFORT CARE. SON AT BEDSIDE MOST OF DAY. DAUGHTER MADDI AT BEDSIDE IN AFTERNOON. THEY REQUEST NO VISITORS OTHER THAN FAMILY. REMAINS SOMMULENT AND NON RESPONSIVE. MEDICATED FOR WORK OF BREATHING AND SECRETIONS ORDERED. REPOSITIONED THROUGHOUT SHIFT FOR COMFORT. WILL CONTINUE TO MONITOR AND TREAT UNTIL CHANGE OF SHIFT.
--- NOTE | 2020-08-14 05:59 | NUR ---
SHIFT SUMMARY PT WAS TRANSFER FROM ICU 7, REPORT RECEIVED FROM SERVANDO KERR IN ICU. PT ARRIVED ON UNIT AT 2108. SHE IS A 54 Y/O FEMALE, CURRENTLY COMFORT CARE. NONRESPONSIVE TO TOUCH OR VOICE. NO S/S OF PAIN. RAPID BREATHING AND PERIODS OF APNEA NOTED. NO ACUTE CHANGES IN PT CONDITION NOTED SINCE ARRIVAL. WILL CONTINUE TO MONITOR AND TREAT PER EMAR UNTIL HAND OFF TO DAY SHIFT RN.
--- NOTE | 2020-08-14 11:20 | NUR ---
[facility] comfort care visit - Review of EMR and case conferenced with pt's RN prior to my visit. Pt supine in bed with hob elevated. She appears flushed and is warm and diaphoretic. Her resp rate is 36-40/min. She does not appear uncomfortable other than her resp rate. Liriano cath with dk marissa urine in drainage bag. No family at bedside. Hand placed on pt's shoulder/chest for a few minutes for therapeutic touch. Spoke with RN re: medicating for increased work of respirations and discussed dosing. Roxanol 20 mg SL recommended. Per RN, pt's daughter has called for any updates this am. [facility] to visit daily.
--- NOTE | 2020-08-14 16:39 | NUR ---
[facility] COMFORT CARE VISIT SECOND COMFORT CARE VISIT TO F/U ON S/S. Pt cont with increased work of breathing and increased RR of 40/min. Reviewed with RN. Recommended cont use of Roxinol and ativan prn as ordered per eMAR and tylenol SC if elevated temp appears to be causing discomfort. Pt remains warm to touch but not febrile at this time. Pt does not appear uncomfortable outside of increased RR. I did not observe nonverbal indicators of pain.
--- NOTE | 2020-08-14 17:13 | NUR ---
SHIFT SUMMARY PATIENT IS ON COMFORT CARE. PATIENT IS NON-RESPONSIVE. PATIENT TURNED REGULARLY THROUGHOUT THIS SHIFT. PATIENT MEDICATED FOR AIR HUNGER MULTIPLE TIMES THIS SHIFT. PATIENT MAINTAINING 30-40 RESPIRATIONS PER MINUTE THIS SHIFT. PATIENT'S DAUGHTER CALLED TO CHECK IN MULTIPLE TIMES THIS SHIFT. PATIENT WITHOUT APPERANCES OF PAIN OR DISTRESS THROUGHOUT THIS SHIFT. PATIENT WARM TO THE TOUCH THIS AFTERNOON, TEMPERATURE 99.5 WHEN CHECKED.
--- NOTE | 2020-08-14 21:54 | NUR ---
COMFORT ASSESSMENT SUCTION IN ROOM FOR SECRETIONS. PT GRITS TEETH AND FIGHTS SUCTIONING. I HAVE ORDERED A SCOPALAMINE PATCH FROM PHARMACY TO HELP WITH SECRETIONS. PT REPOSITIONED. NEW GOWN AND LAWLER PLACED. PT BOOSTED IN BED
== END 2020-08-15 01:00 | DRG 917 ==
LOC: ER 12:21 → ICUE 13:55 → ICUW 13:55 → ICUE 15:01 → MEDS 08-13 21:08
PROVIDERS: Emergency Medicine; Internal Medicine Critical Care Medicine; Internal Medicine Pulmonary Disease; Nurse Practitioner Acute Care; ADMIT Internal Medicine
PROC: 02HV33Z Insertion of Infusion Device into Superior Vena Cava, Percutaneous Approach (ICD-10-PCS; 2020-08-06)
PROC: 0BH17EZ Insertion of Endotracheal Airway into Trachea, Via Natural or Artificial Opening (ICD-10-PCS; 2020-08-06)
PROC: 5A1955Z Respiratory Ventilation, Greater than 96 Consecutive Hours (ICD-10-PCS; 2020-08-06)
PROC: 009U3ZX Drainage of Spinal Canal, Percutaneous Approach, Diagnostic (ICD-10-PCS; principal; 2020-08-08)
DX: T43.624A Poisoning by amphetamines, undetermined, initial encounter (principal); J96.01 Acute respiratory failure with hypoxia; G92 Toxic encephalopathy; I50.23 Acute on chronic systolic (congestive) heart failure; I21.4 Non-ST elevation (NSTEMI) myocardial infarction; I16.1 Hypertensive emergency; M62.82 Rhabdomyolysis; E87.2 Acidosis; G93.1 Anoxic brain damage, not elsewhere classified; I47.2 Ventricular tachycardia; R65.10 Systemic inflammatory response syndrome (SIRS) of non-infectious origin without acute organ dysfunction; Z51.5 Encounter for palliative care; Z66 Do not resuscitate; F17.210 Nicotine dependence, cigarettes, uncomplicated; Z20.822 Contact with and (suspected) exposure to COVID-19; T40.7X4A Poisoning by cannabis (derivatives), undetermined, initial encounter; Y92.9 Unspecified place or not applicable
CPT/HCPCS: 0241U; 31500; 31720; 36415; 36569; 51702; 70450; 71045; 71260; 74177; 80047; 80048; 80053; 81001; 82248; 82550; 82553; 82803; 82945; 82947; 83605; 83735; 83880; 84100; 84157; 84484; 85014; 85025; 85379; 87040; 87070; 87077; 87086; 87102; 87185; 87186; 87205; 87483; 89051; 93005; 93010; 93306; 93975; 94002; 94003; 94640; 95819; 96365-59; 96375-59; 99291-25; 99292; A9270; C1751; C9113; G0480; J0295; J0610; J0696; J1650; J1940; J2060; J2250; J2270; J2704; J3010; J3475; J3480; J7030; J7050; J7060; J7120; Q9967